=== PATIENT | female | born 1985 | race Caucasian/White ===

== ENCOUNTER 2016-04-17 09:58 | Emergency (ER) | payer MEDICAID ==
[~2016-04-17 09:58] MED LIST: TRICTAB PO
== END 2016-04-17 11:15 | disposition left against medical advice (07) ==
LOC: PHED 09:58
DX: R68.89 Other general symptoms and signs (principal)
CPT/HCPCS: 99281

== ENCOUNTER 2017-03-16 10:54 | Emergency (ER) | payer SELFPAY ==
[~2017-03-16] VITALS: Ht 170.2 cm; Wt 101.3 kg
[2017-03-16 11:01] VITALS: BP 129/68; PULSE 75; RESP 16; TEMP 97.9; O2SAT 96
--- NOTE | 2017-03-16 11:24 | PD ---
HPI Chief Complaint: Cold / Flu Symptoms Time Seen by Provider: 11:13 Travel History International Travel<30 days: No Contact w/Intl Traveler<30days: No Traveled to known affect area: No History of Present Illness HPI 31-year-old female presents emergency department for evaluation of sore throat, nasal congestion, cough and body aches that started yesterday. Patient states she believes she's had a fever but does not know how high it was. Patient has no major medical history does not take any daily medication. Patient denies any chest pain, abdominal pain, nausea, vomiting, diarrhea, lightheadedness. PFSH Past Medical History Medical History: Denies Significant Hx Diminished Hearing: No ?: Not LMP: 03/06/17 Past Surgical History Surgical History: No Previous Surgery Social History Alcohol Use: No Tobacco Use: No (former) Substance Use: No Allergies-Medications (Allergen,Severity, Reaction): Coded Allergies: aspirin (Unverified Allergy, Mild, rash, 03/16/17) penicillin G (Unverified Allergy, Mild, hives, 03/16/17) Reported Meds & Prescriptions Reported Meds & Active Scripts Active Review of Systems Except as stated in HPI: all other systems reviewed are Neg Physical Exam Narrative GENERAL: Well-nourished, well-developed 31-year-old female patient in no acute distress. Nontoxic appearing. Resting comfortably on the stretcher playing with her phone. SKIN: Focused skin assessment warm/dry. HEAD: Normocephalic. Atraumatic. EYES: No scleral icterus. No injection or drainage. THROAT: No pharyngeal injection, exudates, or tonsillar hypertrophy. Airway is patent. ENT: Mucosa pink and moist. No erythema or exudates. No uvular edema. No uvular , palatal, or tonsillar deviation. Airway patent. Nasal turbinates appear mildly hypertrophic without nasal blood, purulent drainage or septal hematoma. NECK: Supple, trachea midline. No JVD or lymphadenopathy. CARDIOVASCULAR: Regular rate and rhythm without murmurs, gallops, or rubs. RESPIRATORY: Breath sounds equal bilaterally. No accessory muscle use. GASTROINTESTINAL: Abdomen soft, non-tender, nondistended. MUSCULOSKELETAL: No cyanosis, or edema. BACK: Nontender without obvious deformity. No CVA tenderness. Data Data Last Documented VS Vital Signs Date Time Temp Pulse Resp B/P (MAP) Pulse Ox O2 Delivery O2 Flow Rate FiO2 03/16/17 11:01 97.9 75 16 129/68 (88) 96 Orders Orders Influenzae A/B Antigen (03/16/17 11:20) Ed Discharge Order (03/16/17 12:03) [facility] Medical Decision Making Medical Screen Exam Complete: Yes Emergency Medical Condition: Yes Differential Diagnosis Differential diagnoses include but not limited to viral syndrome, influenza, bronchitis, pharyngitis Narrative Course Patient is well-appearing, nontoxic, afebrile. Influenza ordered and pending. Influenza is negative. Patient is discharged home with instructions for supportive care, to return to the emergency Department with any worsening condition but otherwise follow up with primary care. Diagnosis Primary Impression: Viral syndrome Referrals: Primary Care Physician Patient Instructions: General Instructions, Viral Syndrome (ED) Additional Instructions: Please return to emergency department if your symptoms return or worsen. Follow up with your primary care provider. May take [id number] ibuprofen or Tylenol as needed for pain or fever. Supportive care, stay hydrated, get enough rest, diet as tolerated. Disposition: 01 DISCHARGE HOME Condition: Stable Ernestine Maier Mar 16, 2017 11:24
== END 2017-03-16 12:09 | disposition home or self-care (01) ==
LOC: PHEFT 10:54
DX: B34.9 Viral infection, unspecified (principal)
CPT/HCPCS: 87804; 99283

== ENCOUNTER 2017-03-18 05:14 | Emergency (ER) | payer MEDICAID ==
[~2017-03-18] VITALS: Ht 170.2 cm; Wt 101.5 kg
[2017-03-18 05:35] VITALS: BP 127/60; PULSE 68; RESP 12; TEMP 97.9; O2SAT 97
--- NOTE | 2017-03-18 05:52 | PD ---
HPI Chief Complaint: sore throat Time Seen by Provider: 05:40 Travel History International Travel<30 days: No Contact w/Intl Traveler<30days: No Traveled to known affect area: No History of Present Illness HPI patient presented last saturday with same complaints of sore throat, cough nonproductive, body aches , subjective fever, and flu test was negative. diagnosed with viral syndrome....now she returns with worsening sore throat. all:pcn/asa pmhx denies pshx denies PFSH Past Medical History Diminished Hearing: No Social History Alcohol Use: No Tobacco Use: No (former) Substance Use: No Allergies-Medications (Allergen,Severity, Reaction): Coded Allergies: aspirin (Unverified Allergy, Mild, rash, 03/18/17) penicillin G (Unverified Allergy, Mild, hives, 03/18/17) Reported Meds & Prescriptions Reported Meds & Active Scripts Active No Active Prescriptions or Reported Medications Review of Systems Except as stated in HPI: all other systems reviewed are Neg General / Constitutional: No: Fever Eyes: No: Visual changes HENT: Positive: Sore Throat, Rhinorrhea Cardiovascular: No: Chest Pain or Discomfort Respiratory: Positive: Cough Gastrointestinal: No: Abdominal Pain Genitourinary: No: Dysuria Musculoskeletal: No: Pain Skin: No Rash Neurologic: No: Weakness Psychiatric: No: Depression Endocrine: No: Polydipsia Hematologic/Lymphatic: No: Easy Bruising Physical Exam Narrative GENERAL APPEARANCE: This 31 year old patient is a well-developed, well-nourished , child in no acute distress. SKIN: Skin is warm and dry without erythema, swelling or exudate. There is good turgor. No tenting. HEENT: Throat has erythema, without exudate. Mucous membranes are moist. Uvula is midline. Airway is patent. The pupils are equal, round and reactive to light. Extra ocular motions are intact. No drainage or injection. The ears show bilateral tympanic membranes without erythema, dullness or loss of landmarks. No perforation. NECK: Supple and non tender with full range of motion without discomfort. No meningeal signs. LUNGS: Equal and bilateral breath sounds without wheezes, rales or rhonchi. CHEST: The chest wall is without retractions or use of accessory muscles. HEART: Has a regular rate and rhythm without murmur, gallops, click or rub. ABDOMEN: Soft, non tender with positive active bowel sounds. No rebound tenderness. No masses, no hepatosplenomegaly. EXTREMITIES: Without cyanosis, clubbing or edema. Equal 2+ distal pulses and 2 second capillary refill noted. NEUROLOGIC: The patient is alert, aware, and appropriately interactive with parent and with examiner. The patient moves all extremities with normal muscle strength. Normal muscle tone is noted. Normal coordination is noted. Data Data Last Documented VS Vital Signs Date Time Temp Pulse Resp B/P (MAP) Pulse Ox O2 Delivery O2 Flow Rate FiO2 03/18/17 05:35 97.9 68 12 127/60 (82) 97 Orders Orders Group A Rapid Strep Screen (03/18/17 05:47) MDM Medical Decision Making Medical Screen Exam Complete: Yes Emergency Medical Condition: Yes Medical Record Reviewed: Yes Differential Diagnosis flu v strep v viral syndrome Narrative Course previous flu test negative, strep test negative however in lieu of resolution of other symptoms but persistence and worsening of sore throat and findings will give wait and see abx script. Diagnosis Primary Impression: Pharyngitis Qualified Codes: J02.9 - Acute pharyngitis, unspecified Patient Instructions: General Instructions, Pharyngitis (ED) Scripts Tramadol (Ultram) 50 Mg Tab 50 MG PO Q6H Y for PAIN, #14 TAB 0 Refills Prov: Dewayne Perez MD 03/18/17 Azithromycin (Zithromax Z-Rio) 250 Mg Dspk 250 MG PO DIRECTED for Infection, #1 DSPK 0 Refills 500 MG (2 tabs) day 1, then 1 tab days 2-5. Prov: Dewayne Perez MD 03/18/17 Lidocaine Viscous Liq (Lidocaine Viscous Liq) 2 % Liqd 5 ML SWISH-SWAL QID Y for PAIN, #1 BOTTLE 0 Refills Prov: Dewayne Perez MD 03/18/17 Disposition: 01 DISCHARGE HOME Condition: Stable Dewayne Perez MD Mar 18, 2017 05:52
[2017-03-18] MEDS ORDERED: TRAM50 PO (06:16)
[2017-03-18] MEDS ORDERED: ZITHTAB PO (06:16)
[2017-03-18] MEDS ORDERED: LIDO1SOL8 SWISH-SWAL (06:16)
[2017-03-18 06:31] VITALS: BP 125/52
== END 2017-03-18 06:40 | disposition home or self-care (01) ==
LOC: PHED 05:14
DX: J02.9 Acute pharyngitis, unspecified (principal)
CPT/HCPCS: 87081; 87880; 99284